=== PATIENT | female | born 2000 | race Caucasian/White ===

== ENCOUNTER 2023-06-12 12:35 | Emergency (ER) | payer MEDICAID ==
[~2023-06-12] VITALS: Ht 157.5 cm; Wt 56.0 kg
[2023-06-12 12:59] VITALS: BP 103/48; PULSE 109; RESP 16; O2SAT 97
[2023-06-12] MEDS ORDERED: ACETAMINOPHEN 325MG TABLET PO ONE (13:15)
[2023-06-12 14:07] VITALS: TEMP 101.9
[2023-06-12] MEDS ORDERED: TUSSL MT (15:01)
[2023-06-12] MEDS ORDERED: IBUP-2028 MT (15:01)
[2023-06-12] MEDS ORDERED: ONDA4TAB50 MT (15:01)
[2023-06-12] MEDS ORDERED: CETI1TAB MT (15:01)
[2023-06-12] MEDS ORDERED: ONDANSETRON 4MG ODT PO ONE (15:15)
== END 2023-06-12 15:52 | disposition home or self-care (01) ==
LOC: ER 13:00
DX: J11.1 Influenza due to unidentified influenza virus with other respiratory manifestations (principal); Z20.822 Contact with and (suspected) exposure to COVID-19
CPT/HCPCS: 99283; 87426; 87804 ×2; Q0162; C9803